=== PATIENT | male | born 1995 | race Hispanic/Latino ===

== ENCOUNTER 2021-09-06 11:55 | Emergency (ER) | payer OTHER, SELFPAY ==
[2021-09-06 12:05] VITALS: PULSE 65; RESP 14; TEMP 36.6; O2SAT 100; BMI 25.0
[2021-09-06 12:47] LABS: COVID19 -Nasal RAPID Negative (Negative)
--- NOTE | 2021-09-06 13:38 | ED_ITS ---
HPI - URI/Sore Throat <ELMER Skinner - Last Filed: 09/06/21 15:28> General Chief Complaint: Upper Respiratory Symptoms Stated Complaint: covid symptoms - active duty Time Seen by Provider: 09/06/21 12:52 Source: patient Mode of arrival: Ambulatory History of Present Illness HPI Narrative: On the patient is a 26-year-old female nonsmoker who denies pertinent medical history presents with a chief complaint of COVID symptoms. He has cough congestion and postnasal drip. He states that he does not have any chest pain, feels short of breath when he has lots of postnasal drip sometimes. Denies any muscle aches or chills. Denies any fevers. Denies any nausea vomiting or diarrhea. Denies any abdominal pain. He is fully vaccine with Moderna, no Booster. Related Data Allergies Allergy/AdvReac Type Severity Reaction Status Date / Time No Known Drug Allergies Allergy Verified 09/06/21 12:05 Review of Systems <ELMER Skinner - Last Filed: 09/06/21 15:28> Review of Systems Narrative: GENERAL: See HPI HEENT: See HPI RESPIRATORY: See HPI CARDIOVASCULAR: Denies chest pain, palpitations, orthopnea, edema, GASTROINTESTINAL: Denies nausea, vomiting, abdominal pain, diarrhea, constipation, melena. : Denies dysuria, frequency, incontinence, hematuria, urinary retention. MUSCULOSKELETAL: denies weakness, joint pain, or bony pain SKIN: Denies rash, skin lesions, or other NEUROLOGIC: Denies weakness, headache, numbness, change in speech, confusion, seizures, incoordination. PSYCHIATRIC: No concerning psychosocial issues. 12 point review of systems is negative except for those stated above Patient History <ELMER Skinner - Last Filed: 09/06/21 15:28> Social History Smoking Status: Unknown if ever smoked Smoking Status: Unknown if ever smoked alcohol intake frequency: a few times a week Substance Use Type: does not use Exam <ELMER Skinner - Last Filed: 09/06/21 15:28> Narrative Exam Narrative: GENERAL: This is a well-nourished, well-developed patient, in no acute distress HEAD: Atraumatic. Normocephalic. No temporal or scalp tenderness. EYES: Pupils equal round and reactive. Extraocular motions intact. No scleral icterus. No injection or drainage. ENT: Nose without bleeding, purulent drainage or septal hematoma. Throat without erythema, tonsillar hypertrophy or exudate. Uvula midline. Airway patent. Bilateral TMs pearly connelly. NECK: Trachea midline. No JVD or lymphadenopathy. Supple, nontender, no meningeal signs. CARDIOVASCULAR: Regular rate and rhythm RESPIRATORY: Clear to auscultation. Breath sounds equal bilaterally. No wheezes, rales, or rhonchi. No cough. No increased respiratory effort. No accessory muscle use. Speaking full sentences. GASTROINTESTINAL: Abdomen soft, non-tender, nondistended. No hepato- splenomegaly, or palpable masses. No guarding. EXTREMITIES: No clubbing, cyanosis, or edema. No joint tenderness, effusion, or edema noted. BACK: Nontender without deformity or crepitance. No flank tenderness. NEURO: AOx3. SKIN: No rash or erythema on visible skin Initial Vital Signs Initial Vital Signs: Vital Signs Temperature 97.9 F 09/06/21 12:05 Pulse Rate 65 09/06/21 12:05 Respiratory Rate 14 09/06/21 12:05 Pulse Oximetry 100 09/06/21 12:05 <Hector Mendoza MD - Last Filed: 09/12/21 12:17> Initial Vital Signs Initial Vital Signs: Vital Signs Temperature 97.9 F 09/06/21 12:05 Pulse Rate 65 09/06/21 12:05 Respiratory Rate 14 09/06/21 12:05 Pulse Oximetry 100 09/06/21 12:05 Course <ELMER Skinner - Last Filed: 09/06/21 15:28> Orders Ordered: ED Orders 09/06/21 12:12 COVID19 -Nasal swab/Pre-Proc Stat Vital Signs Vital signs: Vital Signs - 8 hr 09/06/21 12:05 Temperature 97.9 F Pulse Rate 65 Respiratory Rate 14 Pulse Oximetry 100 <Hector Mendoza MD - Last Filed: 09/12/21 12:17> Orders Ordered: ED Orders 09/06/21 12:12 COVID19 -Nasal swab/Pre-Proc Stat Vital Signs Vital signs: Vital Signs - 8 hr 09/06/21 12:05 Temperature 97.9 F Pulse Rate 65 Respiratory Rate 14 Pulse Oximetry 100 MDM - URI/Sore Throat <Kenna Dwyer, [employer] EXPERIENCE COORDINATOR-BC - Last Filed: 09/06/21 15:28> Lab Data Labs: Lab Results 09/06/21 Range/Units 12:12 SARS-CoV-2 (PCR) Negative (Negative) MDM Narrative Medical decision making narrative: The patient is a 26-year-old male who presents with a chief complaint of possible COVID. I did discuss that since his symptoms started yesterday, he may be too early in his course of symptoms to test positive. Discussed at length staying at home, quarantine, work note given, encouraged [id number] measures as needed and able. Discussed the possibility of getting retested in a few days if necessary. Encouraged follow-up with primary care provider. Patient has no questions or concerns upon discharge states understanding of return precautions as well as follow-up care. He has been hemodynamically stable throughout her stay in the ER, nontoxic appearing. <Hector Mendoza MD - Last Filed: 09/12/21 12:17> Lab Data Labs: Lab Results 09/06/21 Range/Units 12:12 SARS-CoV-2 (PCR) Negative (Negative) Discharge Plan Departure Patient Disposition: Home Clinical Impression: Upper respiratory infection Instructions: DI for Viral Upper Respiratory Infection -- Adult, Coronavirus Disease 2019, COVID-19 Viral Test, Can COVID-19 be prevented? Activity Restrictions/Additional Instructions: Thank you for trusting us with your care today. As discussed, you tested negative for COVID today. However given that you have concerning symptoms, I have given you a work notes that you can stay home and feel better. As discussed, please follow-up with primary care provider. Please use [id number] medications as needed and able to feel better such as acetaminophen Motrin decongestants etcetera Even though you tested negative today, since her symptoms started yesterday you may still test COVID positive in the near future given her short duration of symptoms. You can always get retested in the next few days. Please come back to the emergency department for any acute concerns. Stand Alone Forms: Work Release Note <Hector Mendoza MD - Last Filed: 09/12/21 12:17> Cosign ED Attending [place] Attestation: I was immediately available in the department for consultation. This documentation has been reviewed and I agree with assessment and plan. Supervised by Hector Mendoza MD
== END 2021-09-06 13:35 | disposition home or self-care (01) ==
PROVIDERS: Emergency Medicine; Emergency Provider Nurse Practitioner Family
DX: J06.9 Acute upper respiratory infection, unspecified (principal); Z20.822 Contact with and (suspected) exposure to COVID-19
CPT/HCPCS: 87635; 99281; 99282; C9803